=== PATIENT | male | born 2000 | race Caucasian/White ===

== ENCOUNTER 2024-01-25 18:20 | Emergency (ER) | payer OTHER, SELFPAY ==
--- NOTE | ~2024-01-25 | XR_ITS ---
EXAMINATION: XR FOOT, RIGHT CLINICAL INFORMATION: Rule out osteomyelitis. COMPARISON: None available. TECHNIQUE: AP, lateral, and oblique views of the right foot. FINDINGS: Benign nodularity as to where the clinical suspicion for osteomyelitis in the right foot is. No obvious lytic or destructive bone lesion or abnormal periosteal reaction is seen. There is degenerative change at the first MTP joint with minimal spurring noted. XR/XR foot RT min 3V IMPRESSION: No definite plain film evidence of osteomyelitis. If there is a high clinical suspicion, MRI scan of the foot is a more sensitive study.
--- NOTE | 2024-01-25 18:39 | ED.ABDPAIN ---
HPI - Abdominal Pain General Chief Complaint: Skin/Abscess/Foreign Body Stated Complaint: rt ft toe area wound Time Seen by Provider: 01/25/24 22:10 Source: patient Mode of arrival: ambulatory Limitations: no limitations History of Present Illness ED Provider: ye BALL narrative: Patient noticed redness and swelling of the right foot for last 10 days wears work boots for long hours at [place] no open wound no history of similar infection in the past no fever no chills Related Data Previous Rx's ?Medication ?Instructions ?Recorded cephalexin 500 mg capsule 500 mg PO QID 10 days #40 caps 01/25/24 doxycycline hyclate 100 mg tablet 100 mg PO BID #20 tabs 01/25/24 Allergies Allergy/AdvReac Type Severity Reaction Status Date / Time hazelnut Allergy Nausea Verified 01/25/24 18:44 Review of Systems Review of Systems Yes all other systems are reviewed and are negative [facility] Social History Social History Smoked in Last 30 Days: No Use of substances other than those prescribed or required for medical reasons: No Advance Directives: No Advance Directives Information Provided: No Physical Exam ED Vital Signs: Vital Signs - 24 hr 01/25/24 18:40 01/25/24 21:08 01/25/24 22:48 Temperature 98.6 F 98.7 F 98.3 F Pulse Rate 106 H 68 70 Respiratory Rate 18 19 19 Blood Pressure 151/79 H 115/73 118/74 Pulse Oximetry 97 98 98 Oxygen Delivery Method Room Air Room Air Room Air 01/25/24 22:50 Temperature 98.3 F Pulse Rate 70 Respiratory Rate 19 Blood Pressure 118/74 Pulse Oximetry 98 Oxygen Delivery Method Room Air BMI result Body Mass Index 23.1 Extrem Ankle/foot/toe images: 1. Cellulitic area skin between 4th and 5th toe macerated no pus discharge bones are intact nontender Course Course Course Narrative: This is a Rapid Medical Exam performed in triage by Pam Cedeno PA-C. Full HPI, ROS and PE to be performed by primary ED provider. 23 yo M w/no sig pmhx presenting to the ED c/o right foot infection x1.5 weeks. denies injury/fall. states woke up with the symptoms. Admits to drainage previously, not at present PE: +erythema noted to R foot w/blister bwt 4-5th toes. NV intact Plan: labs, XR Medical Decision Making Medical Decision Making [facility] Narrative: Patient with right foot cellulitis likely from infection between 1st and 4th toe prescribed doxycycline and cephalexin advised patient to the foot dry Lab Data [facility] Lab Attestation statement: I reviewed the patient's lab results. 01/25/24 19:30 01/25/24 19:30 Labs: Lab Results 01/25/24 Range/Units 19:30 WBC 9.1 (4.8-10.8) X10*3/uL RBC 4.71 (4.60-5.80) X10*6/uL Hgb 14.4 (14.0-18.0) g/dl Hct 42.5 (42.0-52.0) % MCV 90.2 (80.0-98.0) fL MCH 30.6 (27.0-33.0) pg MCHC 33.9 (31.0-36.0) g/dl RDW 12.0 (11.0-16.0) % Plt Count 242 (160-400) X10*3/uL MPV 10.0 (9.4-12.4) fL Immature Gran % (Auto) 0.2 (0.0-0.4) % Neut % (Auto) 73.9 H (45-73) % Lymph % (Auto) 16.3 L (20-40) % Stafford % (Auto) 5.0 (2-11) % Eos % (Auto) 4.2 H (0-4) % Baso % (Auto) 0.4 (0-2) % Lymph # (Auto) 1.5 (1.2-4.9) X10*3/uL Stafford # (Auto) 0.5 (0.1-1.2) X10*3/uL Eos # (Auto) 0.4 (0.0-0.4) X10*3/uL Baso # (Auto) 0.0 (0.0-0.2) X10*3/uL Abs Immat Gran (auto) 0.02 (0.00-0.03) X10*3/uL Absolute Neuts (auto) 6.7 (2.0-8.3) x10*3/uL Absolute Nucleated RBC 0.000 (0.0-0.012) X10*3/uL Nucleated RBC % (auto) 0.0 (0.0-0.2) /100WBC Sodium 143 (135-145) mmol/L Potassium 3.9 (3.3-5.1) mmol/L Chloride 104 (96-108) mmol/L Carbon Dioxide 31 H (22-29) mmol/L Anion Gap 12 (12-20) BUN 14 (9-16) mg/dL Creatinine 0.98 (0.5-1.4) mg/dL Estim Creat Clear Calc 133.7 Estimated GFR > 60 Random Glucose 120 H (60-115) mg/dL Lactic Acid 1.1 (0.5-2.0) mmol/L Calcium 9.5 (8.4-10.2) mg/dL Total Bilirubin 0.4 (0.0-1.0) mg/dL Direct Bilirubin 0.1 (0.0-0.5) mg/dL AST 20 (5-37) U/L ALT 14 (0-40) U/L Alkaline Phosphatase 84 (39-117) U/L Total Protein 7.1 (6.5-8.0) g/dL Albumin 4.3 (3.5-5.0) g/dL Radiology Impression Discussion of test interpretation with radiology: I have reviewed the radiologist's reading. Medications Administered Discontinued Medications Generic Name Dose Route Start Last Admin Trade Name Freq PRN Reason Stop Dose Admin Cephalexin HCl 500 mg 01/25/24 22:44 01/25/24 23:04 Cephalexin 500 Mg Capsule PO 01/25/24 22:45 Not Given ONCE ONE Doxycycline Monohydrate 100 mg 01/25/24 22:44 01/25/24 23:04 Doxycycline Monohydrate 100 Mg Capsule PO 01/25/24 22:45 Not Given ONCE ONE Discharge Plan Discharge Clinical Impression: Cellulitis Patient Disposition: Home, Self-Care Instructions: Cellulitis (ED) Additional Instructions: Local care of the right foot as advised Take antibiotic as prescribed Follow with PCP if not better Prescriptions: New cephalexin 500 mg capsule 500 mg PO QID 10 Days Qty: 40 0RF doxycycline hyclate 100 mg tablet 100 mg PO BID Qty: 20 0RF Interventions: ED Discharge Assessment Last Done: 01/25/24 22:50 Discharge Date/Time: 01/25/24 22:50 Print Language: Japanese
[2024-01-25 18:40] VITALS: BP 151/79; PULSE 106; RESP 18; TEMP 37; O2SAT 97; BMI 23.1
[2024-01-25 19:36] LABS: MANUAL DIFF FLAG NO
[2024-01-25 19:37] LABS: Basophils Percent Auto 0.4 % (0-2); Eosinophils Absolute Auto 0.4 X10*3/uL (0.0-0.4); Eosinophils Percent Auto 4.2 % (0-4); Hematocrit 42.5 % (42.0-52.0); Hemoglobin 14.4 g/dl (14.0-18.0); Imm Gran Abs Auto 0.02 X10*3/uL (0.00-0.03); Imm Gran Pct Auto 0.2 % (0.0-0.4); Lymphocytes Absolute Auto 1.5 X10*3/uL (1.2-4.9); Lymphocytes Percent Auto 16.3 % (20-40); Mean Corpuscular HGB Conc 33.9 g/dl (31.0-36.0); Mean Corpuscular Hemoglobin 30.6 pg (27.0-33.0); Mean Corpuscular Volume 90.2 fL (80.0-98.0); Monocytes Absolute Auto 0.5 X10*3/uL (0.1-1.2); Neutrophils Absolute Auto 6.7 x10*3/uL (2.0-8.3); Neutrophils Percent Auto 73.9 % (45-73); Platelet Count 242 X10*3/uL (160-400); Red Blood Count 4.71 X10*6/uL (4.60-5.80); White Blood Count 9.1 X10*3/uL (4.8-10.8)
[2024-01-25 19:46] LABS: Lactic Acid 1.1 mmol/L (0.5-2.0)
[2024-01-25 19:52] LABS: Alanine Aminotransferase 14 U/L (0-40); Albumin Level 4.3 g/dL (3.5-5.0); Alkaline Phosphatase 84 U/L (39-117); Anion Gap 12 (12-20); Aspartate Amino Transferase 20 U/L (5-37); Bilirubin Direct 0.1 mg/dL (0.0-0.5); Bilirubin Total 0.4 mg/dL (0.0-1.0); Blood Urea Nitrogen 14 mg/dL (9-16); Calcium 9.5 mg/dL (8.4-10.2); Carbon Dioxide 31 mmol/L (22-29); Chloride 104 mmol/L (96-108); Creatinine Clr Calc Pharmacy 133.7; Estimated Glomerular Filt Rate > 60; Glucose Random 120 mg/dL (60-115); Potassium 3.9 mmol/L (3.3-5.1); Sodium 143 mmol/L (135-145); Total Protein 7.1 g/dL (6.5-8.0)
[2024-01-25 21:08] VITALS: BP 115/73; PULSE 68; RESP 19; TEMP 37.1; O2SAT 98
[2024-01-25 22:48] VITALS: BP 118/74; PULSE 70; RESP 19; TEMP 36.8; O2SAT 98
[2024-01-25 22:50] VITALS: BP 118/74; PULSE 70; RESP 19; TEMP 36.8; O2SAT 98
== END 2024-01-25 22:50 | disposition home or self-care (01) ==
PROVIDERS: Physician Assistant; Emergency Provider Internal Medicine
DX: L03.115 Cellulitis of right lower limb (principal); Z79.899 Other long term (current) drug therapy
CPT/HCPCS: 36415; 73630; 80048; 80076; 83605; 85025; 87040; 99283; 99284